=== PATIENT | male | born 1975 | race Caucasian/White ===

== ENCOUNTER 2016-06-01 13:45 | Emergency (ER) | payer OTHER ==
[~2016-06-01] VITALS: Ht 170.2 cm; Wt 93.4 kg
[2016-06-01 13:51] VITALS: BP 113/74
--- NOTE | 2016-06-01 16:58 | NUR ---
PT AMBULATED TO BED 6.
--- NOTE | 2016-06-01 17:04 | NUR ---
40/M presents to ED for evaluation of lower back pain for the past 2 days. Patient states he had an injury at work in 2015 which he is having workers compensation. PT states "I think I hurt my back doing housework." Pt c/o 11/23 pain to lower back, aching, severe, constant. Pt is AOX4, ambulates with steady gait. Pain worsens with changes in position. VSS. at bedside.
--- NOTE | 2016-06-01 17:13 | NUR ---
Patient being evaluated by Dr. Crabtree at bedside.
[2016-06-01] MEDS ORDERED: fentaNYL 0.05 MG/ML VIAL IM ONE (17:25)
[2016-06-01 18:00] VITALS: BP 138/82
--- NOTE | 2016-06-01 18:00 | NUR ---
Patient discharged with v/s stable. Written and verbal after care instructions given and explained. Patient alert, oriented and verbalized understanding of instructions. Ambulatory with steady gait. All questions addressed prior to discharge. ID band removed. Patient advised to follow up with PMD. Rx of TRAMADOL AND TYLENOL W/CODEINE given. Patient educated on indication of medication including possible reaction and side effects. Opportunity to ask questions provided and answered.
== END 2016-06-01 18:00 | disposition home or self-care (01) ==
LOC: MED 13:45
DX: R52 Pain, unspecified (principal); G89.29 Other chronic pain
CPT/HCPCS: 96372; 99283; J3010

== ENCOUNTER 2016-09-11 22:01 | Emergency (ER) | payer OTHER ==
[~2016-09-11] VITALS: Ht 170.2 cm; Wt 93.0 kg
[2016-09-11 22:04] VITALS: BP 129/87
--- NOTE | 2016-09-11 22:13 | NUR ---
Patient taken to XRAY via wheelchair per tech.
--- NOTE | 2016-09-11 22:17 | NUR ---
Patient back from XRAY via wheelchair per tech--to lobby.
--- NOTE | 2016-09-11 22:39 | NUR ---
Patient taken to bed 07.
--- NOTE | 2016-09-11 22:40 | NUR ---
PATIENT PRESENTS TO ED WITH C/O CHEST PAIN, THROBBING WITH NUMBNESS. PT HAS HX OF CHRONIC BACK PAIN AND HTN. EKG SHOWED RBB BLOCK PT DENIES N/V/D; SKIN IS PINK/WARM/DRY; AAOX4 WITH EVEN AND STEADY GAIT; LUNGS CLEAR BL; HR EVEN AND REGULAR; PT DENIES ANY FEVER, CP, SOB, OR COUGH AT THIS TIME; PATIENT STATES PAIN OF 5/10 AT THIS TIME; VSS; PATIENT POSITIONED FOR COMFORT; HOB ELEVATED; BEDRAILS UP X2; BED DOWN. ER MD MADE AWARE OF PT STATUS.
[2016-09-11 23:04] LABS: RED CELL DISTRIBUTION WIDTH 12.1 % (11.6-13.7)
[2016-09-11 23:07] LABS: HEMATOCRIT 50.6 % (36-52); HEMOGLOBIN 16.7 g/dL (12.0-18.0); MEAN CORPUSCULAR HEMOGLOBIN 31 pg (27-31); MEAN CORPUSCULAR HGB CONC 33 g/dL (33-37); MEAN CORPUSCULAR VOLUME 94 fL (80-94); PLATELET COUNT (AUTO) 158 K/uL (140-450); RED BLOOD CELL COUNT(AUTO) 5.39 MIL/uL (4.20-6.10); WHITE BLOOD COUNT (AUTO) 7.1 K/uL (4.8-10.8)
[2016-09-11 23:14] LABS: ANION GAP 16.3 (8-16); CALCIUM 8.7 mg/dL (8.5-10.1); CARBON DIOXIDE 23.3 mmol/L (21-32); CREATININE 0.8 mg/dL (0.7-1.3); POTASSIUM 3.6 mmol/L (3.5-5.1)
[2016-09-11] MEDS ORDERED: ALUMINUM HYD/MAG/SIMETHICONE 30 ML UDC PO ONE (23:20)
[2016-09-11] MEDS ORDERED: LIDOCAINE VISCOUS 2% 20 ML UDC PO ONE (23:20)
[2016-09-11] MEDS ORDERED: DICYCLOMINE HCL LIQUID 10 MG/5 ML UDC PO ONE (23:20)
[2016-09-11 23:21] LABS: TOTAL BILIRUBIN 0.2 mg/dL (0.0-1.0); TOTAL PROTEIN, SERUM 7.8 g/dL (6.4-8.2)
[2016-09-11 23:23] LABS: PARTIAL THROMBOPLASTIN TIME 25.5 secs (22-35.6); PROTHROMBIN TIME 9.7 secs (10.8-13.4)
[2016-09-11 23:25] LABS: BAND % (MANUAL) 2 % (0-8); EOSINOPHILS % (MANUAL) 1 % (0-4); LYMPHOCYTES % (MANUAL) 28 % (20-46); MONOCYTES % (MANUAL) 9 % (5-12); NEUTROPHILS % (MANUAL) 60 (43-65)
--- NOTE | 2016-09-11 23:28 | NUR ---
Dr. Ann evaluating patient at bedside.
[2016-09-11] MEDS ORDERED: NITROGLYCERIN 0.4 MG TAB SL ONE (23:30)
[2016-09-11] MEDS ORDERED: ASPIRIN 325 MG TAB PO ONE (23:30)
--- NOTE | 2016-09-11 23:36 | NUR ---
HOLD NITRO PER DR GOTTLIEB AT THIS TIME.
[2016-09-11 23:55] LABS: AMYLASE 72 U/L (25-115); LIPASE 162 U/L (73-393)
[2016-09-12 01:54] VITALS: BP 119/75
--- NOTE | 2016-09-12 01:54 | NUR ---
Patient discharged with v/s stable. Written and verbal after care instructions given and explained. Patient verbalized understanding. Ambulatory with steady gait. All questions addressed prior to discharge. Advised to follow up with PMD.
== END 2016-09-12 01:54 | disposition home or self-care (01) ==
LOC: MED 22:01
DX: K21.9 Gastro-esophageal reflux disease without esophagitis (principal); K29.70 Gastritis, unspecified, without bleeding; I10 Essential (primary) hypertension; F17.210 Nicotine dependence, cigarettes, uncomplicated; Z71.6 Tobacco abuse counseling
CPT/HCPCS: 36415; 71010; 80053; 82150; 83690; 83880; 84484; 85025; 85610; 85730; 93005; 99285